=== PATIENT | male | born 1955 | race Hispanic/Latino ===

== ENCOUNTER 2017-07-13 08:15 | Day surgery (SDC) | payer OTHER ==
[2017-07-12 14:56] VITALS: BP 127/67
[2017-07-12 15:01] LABS: BASOPHILS % (AUTO) 0.7 % (0.0-5.0); EOSINOPHILS % (AUTO) 2.1 % (0.0-8.0); HEMATOCRIT 40.7 % (42-54); LYMPHOCYTES % (AUTO) 31.2 % (21.0-51.0); MEAN CORPUSCULAR HEMOGLOBIN 31.3 pg (27.0-33.0); MEAN CORPUSCULAR HGB CONC 35.6 g/dL (32.0-36.0); MEAN CORPUSCULAR VOLUME 88.1 fL (79-99); MONOCYTES % (AUTO) 7.8 % (3.0-13.0); NEUTROPHILS % (AUTO) 58.2 % (40.0-77.0); PLATELET COUNT (AUTO) 240 K/uL (130-400); RED BLOOD CELL COUNT(AUTO) 4.63 MIL/uL (4.50-6.20); RED CELL DISTRIBUTION WIDTH 12.8 % (11.0-15.5); WHITE BLOOD COUNT (AUTO) 6.9 K/uL (4.8-10.8)
[2017-07-12 15:09] LABS: CREATININE 1.1 mg/dL (0.5-1.5); POTASSIUM 3.9 mmol/L (3.5-5.1)
[2017-07-13] VITALS (15 sets, daily range): BP systolic 105–128; BP diastolic 55–81
[~2017-07-13] VITALS: Ht 184.2 cm; Wt 96.6 kg
[~2017-07-13 08:15] MED LIST: ACET650T24 PO; AMIT25TA9 PO; CETI10TA57 PO; LISI10TA7 PO; LORA10TA7 PO; SIMV40TA5 PO; TRAM50TA4 PO; VITA100049 PO; VITA1CAP85 PO
[2017-07-13] MEDS ORDERED: LACTATED RINGERS 1000ML 1,000 ML IV ONE (08:48)
[2017-07-13] MEDS: CEFAZOLIN SODIUM 1 GM VIAL IVP SCH ×2 (09:00→10:54)
[2017-07-13] MEDS ORDERED: EPINEPHRINE 1 MG/ML 30ML VIAL IJ ONE (10:18)
[2017-07-13] MEDS ORDERED: ROPIVACAINE 0.5% 5MG/ML 30ML IJ ONE (10:19)
[2017-07-13] MEDS ORDERED: PROPOFOL 10 MG/ML 20ML VIAL IV ONE (10:20)
[2017-07-13] MEDS ORDERED: MIDAZOLAM HCL 1 MG/ML 2ML VIAL ONE (10:20)
[2017-07-13] MEDS ORDERED: FENTANYL CITRATE PF 50 MCG/1 ML 2ML VIAL ONE ×3 (10:20→12:51)
[2017-07-13] MEDS ORDERED: LIDOCAINE PF 2% 5ML ABBOJECT ONE (10:25)
[2017-07-13] MEDS ORDERED: PHENYLEPHRINE HCL 10 MG/ML 1ML VIAL IV ONE (10:25)
[2017-07-13] MEDS ORDERED: ROCURONIUM BROMIDE 10MG/1ML 5ML VL ONE (10:26)
[2017-07-13] MEDS ORDERED: SODIUM CHLORIDE 0.9% 10 ML VIAL ONE (10:26)
[2017-07-13] MEDS ORDERED: EPHEDRINE SULFATE 50 MG/ML AMPULE ONE (11:04)
[2017-07-13] MEDS ORDERED: NEOSTIGMINE 5MG/5ML SYR IV ONE (12:42)
[2017-07-13] MEDS ORDERED: OCTYL 2-CYANOACRYLATE 1 EACH TP ONE (12:49)
[2017-07-13] MEDS ORDERED: MEPERIDINE-PF 25 MG/ML SYG ONE ×2 (13:22→13:40)
[2017-07-13] MEDS ORDERED: PROMETHAZINE HCL 25 MG/ML 1ML AMPULE IM ONE (13:35)
== END 2017-07-13 15:05 | disposition home or self-care (01) ==
LOC: DAH 08:15
PROVIDERS: ATTEND Orthopaedic Surgery
DX: M75.111 Incomplete rotator cuff tear or rupture of right shoulder, not specified as traumatic (principal); M75.41 Impingement syndrome of right shoulder; I10 Essential (primary) hypertension; E78.5 Hyperlipidemia, unspecified; Z88.8 Allergy status to other drugs, medicaments and biological substances; G89.29 Other chronic pain; K21.9 Gastro-esophageal reflux disease without esophagitis; F41.9 Anxiety disorder, unspecified; F32.9 Major depressive disorder, single episode, unspecified; Z79.899 Other long term (current) drug therapy; Z68.29 Body mass index [BMI] 29.0-29.9, adult; M19.90 Unspecified osteoarthritis, unspecified site; Z98.890 Other specified postprocedural states; Z80.9 Family history of malignant neoplasm, unspecified; G47.00 Insomnia, unspecified
CPT/HCPCS: 29824; 29826; 29827; 36415; 80048; 85025; A4218; A4565; A4649 ×6; A4930; A6204; C1763; J0171; J0690; J2001; J2175 ×2; J2250; J2370; J2550; J2704; J2710; J2795; J3010 ×3; J3490 ×2; J7120 ×2